=== PATIENT | female | born 1975 | race Caucasian/White ===

== ENCOUNTER 2017-09-21 17:05 | Emergency (ER) | payer MEDICAID, OTHER ==
[~2017-09-21] VITALS: Ht 160 cm; Wt 59.0 kg
[2017-09-22 02:06] VITALS: BP 135/82
== END 2017-09-22 02:09 | disposition home or self-care (01) ==
LOC: ER 17:13
DX: F32.9 Major depressive disorder, single episode, unspecified (principal); I10 Essential (primary) hypertension; Z76.0 Encounter for issue of repeat prescription; Z88.1 Allergy status to other antibiotic agents

== ENCOUNTER 2018-01-11 22:45 | Inpatient (IN) | payer MEDICAID ==
[~2018-01-11] VITALS: Ht 162.6 cm; Wt 64.1 kg
[2018-01-11] MEDS ORDERED: IOHEXOL 300 MG/ML 100ML BOTTLE IJ ONE (23:17)
[2018-01-11 23:28] LABS: Basophils # (auto) 0 uL; Basophils % (auto) 0.4 % (0.0-2.0); Eosinophils # (auto) 0 uL; Hemoglobin 7.5 g/dL (12.2-16.2); Monocytes # (auto) 0.5 uL; Neutrophils # (auto) 9.4 uL
[2018-01-11 23:29] LABS: Eosinophils % (auto) 0.4 % (0.0-7.0); Hematocrit 25.4 % (36.0-46.0); Lymphocytes # (auto) 1.3 uL; Mean Corpuscular Hemoglobin 19.9 pg (28.0-32.0); Mean Corpuscular Hgb Conc. 29.7 g/dL (32.0-36.0); Mean Corpuscular Volume 66.8 fL (80.0-100.0); Monocytes % (auto) 4.2 % (0.0-12.0); Platelet Count (auto) 659 10^3/uL (140-450); Red Cell Distribution Width 16.8 % (11.8-14.3); White Blood Cell 11.3 10^3/uL (4.4-10.8)
[2018-01-11 23:43] LABS: INR 1.01 (0.9-1.15); Partial Thromboplastin Time 26.5 sec (22.64-33.71)
[2018-01-11 23:45] LABS: Alanine Aminotransferase 12 U/L (13-56); Albumin 3.2 g/dL (3.4-5.0); Amylase 31 U/L (25-115); Anion Gap 7 (5-15); Aspartate Aminotransferase 10 U/L (15-37); BUN/Creatinine Ratio 12.5; Blood Urea Nitrogen 7 mg/dL (7-18); Calcium 8.8 mg/dL (8.5-10.1); Carbon Dioxide 24 mmol/L (21-32); Chloride 109 mmol/L (98-107); GFR African American 151 mL/min; GFR Non-African American 125 mL/min; Glucose 102 mg/dL (74-106); Lipase 77 U/L (73-393); Magnesium 2.1 mg/dL (1.6-2.6); Sodium 140 mmol/L (136-145)
[2018-01-11 23:50] LABS: Alkaline Phosphatase 103 U/L (45-117); Bilirubin, Total 0.2 mg/dL (0.2-1.0); Total Protein 7.6 g/dL (6.4-8.2)
[2018-01-11 23:51] LABS: Potassium 2.8 mmol/L (3.5-5.1)
[2018-01-12] VITALS (7 sets, daily range): BP systolic 93–115; BP diastolic 62–72
[2018-01-12] MEDS ORDERED: MORPHINE SULFATE 4 MG/ML SYR/VIAL IV ONE (00:30)
[2018-01-12] MEDS ORDERED: ONDANSETRON HCL 4 MG/2 ML VIAL IV ONE (00:30)
[2018-01-12] MEDS ORDERED: POTASSIUM CHL 20 Meq TABLET PO ONE (01:30)
[2018-01-12] MEDS ORDERED: traMADol HCL 50 MG TAB PO ONE (01:30)
[2018-01-12] MEDS: POTASSIUM CHL 20MEQ/100ML 100 ML IV SCH ×2 (01:55→03:30)
[2018-01-12] MEDS ORDERED: HEPARIN DRIP/D5W 100UNITS/ML 250 ML IV SCH (03:38)
[2018-01-12] MEDS ORDERED: HEPARIN SODIUM (PORCINE) 5000 UNITS/ML 1ML VIAL IV ONE (04:00)
[2018-01-12 04:28] LABS: Hemoglobin 7.2 g/dL (12.2-16.2); Lymphocytes # (auto) 1.5 uL; Monocytes # (auto) 0.7 uL; Neutrophils # (auto) 8.6 uL; Red Cell Distribution Width 16.8 % (11.8-14.3)
[2018-01-12 04:30] LABS: Basophils # (auto) 0.1 uL; Basophils % (auto) 0.5 % (0.0-2.0); Eosinophils # (auto) 0.1 uL; Eosinophils % (auto) 0.5 % (0.0-7.0); Lymphocytes % (auto) 13.6 % (10.0-50.0); Mean Corpuscular Hgb Conc. 29.8 g/dL (32.0-36.0); Mean Corpuscular Volume 67.3 fL (80.0-100.0); Monocytes % (auto) 6.7 % (0.0-12.0); Neutrophils % (auto) 78.7 % (37.0-80.0); Platelet Count (auto) 615 10^3/uL (140-450); Red Blood Cells 3.57 10^6/uL (4.0-5.20)
[2018-01-12 04:31] LABS: INR 1.03 (0.9-1.15); Partial Thromboplastin Time 24.9 sec (22.64-33.71); Prothrombin Time 11.2 sec (9.37-12.3)
[2018-01-12] MEDS ORDERED: fentaNYL CITRATE 100 MCG/2 ML VL IV ONE (05:15)
[2018-01-12] MEDS ORDERED: LEVOFLOXACIN 750MG 150 ML IV ONE (05:15)
[2018-01-12] MEDS ORDERED: LORazepam 2MG/ML-1ML VIAL IV ONE (07:00)
[2018-01-12] MEDS ORDERED: NITROGLYCERIN 0.4 MG SL TAB SL PRN (07:15)
[2018-01-12] MEDS ORDERED: MORPHINE SULFATE 4 MG/ML SYR/VIAL IV PRN (07:15)
[2018-01-12 07:38] LABS: Eosinophils # (auto) 0 uL; Monocytes # (auto) 0.6 uL; White Blood Cell 11.1 10^3/uL (4.4-10.8)
[2018-01-12 07:39] LABS: BUN/Creatinine Ratio 8.9; Basophils # (auto) 0 uL; Basophils % (auto) 0.4 % (0.0-2.0); Calcium 8.3 mg/dL (8.5-10.1); Eosinophils % (auto) 0.4 % (0.0-7.0); Hematocrit 22.4 % (36.0-46.0); Lymphocytes # (auto) 1.7 uL; Lymphocytes % (auto) 15.7 % (10.0-50.0); Mean Corpuscular Hemoglobin 20.3 pg (28.0-32.0); Mean Corpuscular Hgb Conc. 30.2 g/dL (32.0-36.0); Mean Corpuscular Volume 67.1 fL (80.0-100.0); Monocytes % (auto) 5.4 % (0.0-12.0); Neutrophils # (auto) 8.7 uL; Neutrophils % (auto) 78.1 % (37.0-80.0); Nucleated Red Blood Cells % 0.1 %; Platelet Count (auto) 597 10^3/uL (140-450); Potassium 4.3 mmol/L (3.5-5.1); Red Blood Cells 3.33 10^6/uL (4.0-5.20); Red Cell Distribution Width 16.5 % (11.8-14.3)
[2018-01-12 08:00] LABS: Hemoglobin 6.8 g/dL (12.2-16.2)
[2018-01-12 09:15] LABS: Hematocrit 24.4 % (36.0-46.0); Hemoglobin 7.2 g/dL (12.2-16.2)
[2018-01-12] MEDS: MORPHINE SULFATE 4 MG/ML SYR/VIAL IV PRN ×3 (09:26→20:00)
[2018-01-12] MEDS: ONDANSETRON HCL 4 MG/2 ML VIAL IV PRN ×3 (09:26→20:00)
[2018-01-12 11:29] LABS: % Iron Saturation 2.5 % (15-50)
[2018-01-12] MEDS ORDERED: FUROSEMIDE 20 MG/2 ML VIAL IV ONE (11:45)
[2018-01-12] MEDS ORDERED: POTASSIUM CHL 10% (20 MEQ/15ML) 15ml ORAL SOLN PO ONE (11:45)
[2018-01-12 15:02] LABS: INR 1.07 (0.9-1.15); Prothrombin Time 11.7 sec (9.37-12.3)
[2018-01-12] MEDS: HEPARIN DRIP/D5W 100UNITS/ML 250 ML IV SCH (16:15)
[2018-01-12] MEDS: FERROUS SULFATE 325 MG TAB PO SCH (19:00)
[2018-01-12] MEDS: HYDROcodone-ACET 5/325MG TAB PO PRN (21:48)
[2018-01-12 22:43] LABS: INR 1.05 (0.9-1.15); Partial Thromboplastin Time 52.5 sec (22.64-33.71); Prothrombin Time 11.4 sec (9.37-12.3)
[2018-01-12] MEDS: ACETAMINOPHEN 500 MG TAB PO PRN (23:05)
[2018-01-13] MEDS: HEPARIN DRIP/D5W 100UNITS/ML 250 ML IV SCH ×3 (03:07→18:47)
[2018-01-13 05:00] VITALS: BP 104/63
[2018-01-13] MEDS: MORPHINE SULFATE 4 MG/ML SYR/VIAL IV PRN (05:29)
[2018-01-13] MEDS: ONDANSETRON HCL 4 MG/2 ML VIAL IV PRN (05:29)
[2018-01-13 06:38] LABS: Eosinophils # (auto) 0.1 uL; Hemoglobin 9.8 g/dL (12.2-16.2); Lymphocytes % (auto) 22.5 % (10.0-50.0); Monocytes # (auto) 0.7 uL; Platelet Count (auto) 548 10^3/uL (140-450)
[2018-01-13 06:45] LABS: Basophils # (auto) 0 uL; Basophils % (auto) 0.4 % (0.0-2.0); Eosinophils % (auto) 1.1 % (0.0-7.0); Hematocrit 30.8 % (36.0-46.0); Mean Corpuscular Hemoglobin 23.2 pg (28.0-32.0); Mean Corpuscular Hgb Conc. 31.7 g/dL (32.0-36.0); Neutrophils # (auto) 5.9 uL; Nucleated Red Blood Cells % 0.2 %; Red Blood Cells 4.22 10^6/uL (4.0-5.20); White Blood Cell 8.7 10^3/uL (4.4-10.8)
[2018-01-13 06:56] LABS: INR 1.04 (0.9-1.15); Partial Thromboplastin Time 57.2 sec (22.64-33.71); Prothrombin Time 11.3 sec (9.37-12.3)
[2018-01-13 07:11] LABS: Cholesterol 114 mg/dL (< 200); HDL Cholesterol 30 mg/dL (40-59); LDL Cholesterol 78 mg/dL (< 100); Triglycerides 210 mg/dL (< 150)
[2018-01-13 07:17] LABS: BUN/Creatinine Ratio 11.9; Calcium 8.5 mg/dL (8.5-10.1); Potassium 3.5 mmol/L (3.5-5.1)
[2018-01-13 07:21] LABS: Red Cell Distribution Width 22.9 % (11.8-14.3)
[2018-01-13 08:00] VITALS: BP 107/54
[2018-01-13] MEDS: FERROUS SULFATE 325 MG TAB PO SCH ×2 (08:25→17:41)
[2018-01-13] MEDS: HYDROcodone-ACET 5/325MG TAB PO PRN ×3 (08:38→21:27)
[2018-01-13 09:00] VITALS: BP 107/54
[2018-01-13] MEDS: ACETAMINOPHEN 500 MG TAB PO PRN (11:51)
[2018-01-13 13:00] VITALS: BP 89/66
[2018-01-13 13:08] LABS: INR 1.05 (0.9-1.15); Prothrombin Time 11.4 sec (9.37-12.3)
[2018-01-13 13:37] LABS: Urine Bacteria FEW /hpf (None Seen); Urine Blood Negative /uL (Negative); Urine Mucus MODERATE (None Seen); Urine Specific Gravity 1.033 (1.001-1.035); Urine WBC 15 /hpf (0 - 5)
[2018-01-13 14:03] LABS: Alcohol, Urine < 3.0 mg/dL (0-5); Amphetamine Screen, Urine NEGATIVE (NEGATIVE); Barbiturate Scree,Urine NEGATIVE (NEGATIVE); Benzodiazephine Screen, Urine NEGATIVE (NEGATIVE); Cannabinoid Screen, Urine NEGATIVE (NEGATIVE); Cocaine Screen, Urine NEGATIVE (NEGATIVE); Opiate Scree,Urine POSITIVE (NEGATIVE); Phencyclidine Screen, Urine NEGATIVE (NEGATIVE)
[2018-01-13] MEDS ORDERED: ASPI81TA27 (14:39)
[2018-01-13] MEDS ORDERED: PAR20T (14:39)
[2018-01-13] MEDS ORDERED: ATOR20TA50 (14:39)
[2018-01-13] MEDS ORDERED: SERT-274 (14:39)
[2018-01-13] MEDS: MORPHINE SULFATE 8mg/ml INJ SDV IV PRN ×2 (15:15→20:20)
[2018-01-13] MEDS ORDERED: WARFARIN SODIUM 2.5 MG TAB PO ONE (17:00)
[2018-01-13 17:46] VITALS: BP 100/66
[2018-01-13 19:55] LABS: INR 1.05 (0.9-1.15); Partial Thromboplastin Time 63.6 sec (22.64-33.71); Prothrombin Time 11.4 sec (9.37-12.3)
[2018-01-13] MEDS: ATORVASTATIN 20 MG TAB PO SCH (21:20)
[2018-01-13 22:00] VITALS: BP 110/68
[2018-01-14] MEDS: MORPHINE SULFATE 8mg/ml INJ SDV IV PRN ×5 (00:45→22:51)
[2018-01-14 01:24] LABS: INR 1.09 (0.9-1.15); Partial Thromboplastin Time 69.3 sec (22.64-33.71); Prothrombin Time 11.9 sec (9.37-12.3)
[2018-01-14] MEDS: HYDROcodone-ACET 5/325MG TAB PO PRN ×4 (03:04→18:11)
[2018-01-14 05:55] VITALS: BP 104/68
[2018-01-14 07:53] LABS: Basophils # (auto) 0.1 uL; Hematocrit 30.4 % (36.0-46.0); Lymphocytes # (auto) 1.9 uL; White Blood Cell 8.3 10^3/uL (4.4-10.8)
[2018-01-14 07:57] LABS: Basophils % (auto) 0.8 % (0.0-2.0); Eosinophils # (auto) 0.2 uL; Eosinophils % (auto) 1.8 % (0.0-7.0); Hemoglobin 9.6 g/dL (12.2-16.2); Lymphocytes % (auto) 22.3 % (10.0-50.0); Mean Corpuscular Hemoglobin 22.9 pg (28.0-32.0); Mean Corpuscular Hgb Conc. 31.6 g/dL (32.0-36.0); Mean Corpuscular Volume 72.6 fL (80.0-100.0); Monocytes # (auto) 0.5 uL; Monocytes % (auto) 6.5 % (0.0-12.0); Neutrophils # (auto) 5.7 uL; Neutrophils % (auto) 68.6 % (37.0-80.0); Nucleated Red Blood Cells % 0.1 %; Platelet Count (auto) 602 10^3/uL (140-450); Red Blood Cells 4.18 10^6/uL (4.0-5.20)
[2018-01-14 08:05] LABS: Albumin 2.8 g/dL (3.4-5.0); BUN/Creatinine Ratio 9.1; Bilirubin, Total 0.3 mg/dL (0.2-1.0); Calcium 8.8 mg/dL (8.5-10.1); Potassium 3.5 mmol/L (3.5-5.1); Red Cell Distribution Width 23.5 % (11.8-14.3); Total Protein 7.3 g/dL (6.4-8.2)
[2018-01-14 08:06] LABS: INR 1.31 (0.9-1.15); Prothrombin Time 14.3 sec (9.37-12.3)
[2018-01-14 09:00] VITALS: BP 96/61
[2018-01-14] MEDS: FERROUS SULFATE 325 MG TAB PO SCH ×2 (09:28→18:00)
[2018-01-14 13:00] VITALS: BP 95/59
[2018-01-14 17:00] VITALS: BP 96/64
[2018-01-14] MEDS ORDERED: WARFARIN SODIUM 2.5 MG TAB PO ONE (17:00)
[2018-01-14 20:00] VITALS: BP 105/70
[2018-01-14 22:00] VITALS: BP 105/70
[2018-01-14] MEDS: ATORVASTATIN 20 MG TAB PO SCH (22:07)
[2018-01-15 01:15] LABS: INR 3.17 (0.9-1.15); Partial Thromboplastin Time 63.2 sec (22.64-33.71)
[2018-01-15] MEDS: HEPARIN DRIP/D5W 100UNITS/ML 250 ML IV SCH ×2 (01:57→04:05)
[2018-01-15 05:00] VITALS: BP 96/64
[2018-01-15] MEDS: MORPHINE SULFATE 8mg/ml INJ SDV IV PRN ×2 (06:31→19:47)
[2018-01-15 07:15] LABS: Eosinophils # (auto) 0.1 uL; Hemoglobin 9.6 g/dL (12.2-16.2); Mean Corpuscular Hemoglobin 22.5 pg (28.0-32.0); Monocytes # (auto) 0.6 uL; Red Blood Cells 4.28 10^6/uL (4.0-5.20)
[2018-01-15 07:19] LABS: Basophils # (auto) 0 uL; Basophils % (auto) 0.5 % (0.0-2.0); Eosinophils % (auto) 1.7 % (0.0-7.0); Lymphocytes # (auto) 1.6 uL; Lymphocytes % (auto) 19.6 % (10.0-50.0); Mean Corpuscular Hgb Conc. 31.1 g/dL (32.0-36.0); Mean Corpuscular Volume 72.4 fL (80.0-100.0); Monocytes % (auto) 7.7 % (0.0-12.0); Neutrophils # (auto) 5.8 uL; Neutrophils % (auto) 70.5 % (37.0-80.0); Platelet Count (auto) 709 10^3/uL (140-450); White Blood Cell 8.2 10^3/uL (4.4-10.8)
[2018-01-15 07:24] LABS: Partial Thromboplastin Time 64.3 sec (22.64-33.71); Prothrombin Time 46.4 sec (9.37-12.3)
[2018-01-15 07:28] LABS: Red Cell Distribution Width 23.5 % (11.8-14.3)
[2018-01-15 07:40] LABS: INR 4.2 (0.9-1.15)
[2018-01-15] MEDS: FERROUS SULFATE 325 MG TAB PO SCH ×2 (08:12→18:11)
[2018-01-15 08:13] VITALS: BP 103/66
[2018-01-15] MEDS: HYDROcodone-ACET 5/325MG TAB PO PRN ×2 (09:36→22:28)
[2018-01-15] MEDS ORDERED: ATOR20TA50 PO (10:04)
[2018-01-15 13:27] VITALS: BP 96/64
[2018-01-15 16:56] VITALS: BP 99/74
[2018-01-15] MEDS: SODIUM FERR GLUC 62.5MG/5ML 125 MG in SODIUM CHL 0.9% 100 ML IV SCH (19:53)
[2018-01-15 20:00] VITALS: BP 94/63
[2018-01-15 20:08] LABS: Folate (Folic Acid) 9.72 ng/mL (5.38-24)
[2018-01-15 22:00] VITALS: BP 94/63
[2018-01-15] MEDS: ATORVASTATIN 20 MG TAB PO SCH (22:28)
[2018-01-16] MEDS: MORPHINE SULFATE 8mg/ml INJ SDV IV PRN (04:42)
[2018-01-16 05:00] VITALS: BP 92/64
[2018-01-16 06:47] LABS: Basophils # (auto) 0.1 uL; Basophils % (auto) 0.8 % (0.0-2.0); Eosinophils # (auto) 0.2 uL; Hematocrit 30.5 % (36.0-46.0); Monocytes # (auto) 0.7 uL; Neutrophils # (auto) 4.9 uL
[2018-01-16 06:49] LABS: Eosinophils % (auto) 2.3 % (0.0-7.0); Hemoglobin 9.8 g/dL (12.2-16.2); Lymphocytes # (auto) 1.6 uL; Lymphocytes % (auto) 21.9 % (10.0-50.0); Mean Corpuscular Hemoglobin 23.3 pg (28.0-32.0); Mean Corpuscular Hgb Conc. 32.1 g/dL (32.0-36.0); Mean Corpuscular Volume 72.4 fL (80.0-100.0); Monocytes % (auto) 9.5 % (0.0-12.0); Neutrophils % (auto) 65.5 % (37.0-80.0); Platelet Count (auto) 685 10^3/uL (140-450); Red Blood Cells 4.21 10^6/uL (4.0-5.20); White Blood Cell 7.4 10^3/uL (4.4-10.8)
[2018-01-16 06:57] LABS: Albumin 2.5 g/dL (3.4-5.0); BUN/Creatinine Ratio 13.7; Calcium 8.5 mg/dL (8.5-10.1); Potassium 3.7 mmol/L (3.5-5.1); Red Cell Distribution Width 23.8 % (11.8-14.3)
[2018-01-16 06:59] LABS: Partial Thromboplastin Time 55.3 sec (22.64-33.71); Prothrombin Time 81.8 sec (9.37-12.3)
[2018-01-16 07:03] LABS: Bilirubin, Total 0.4 mg/dL (0.2-1.0); Total Protein 6.9 g/dL (6.4-8.2)
[2018-01-16 07:20] LABS: INR 7.35 (0.9-1.15)
[2018-01-16] MEDS: FERROUS SULFATE 325 MG TAB PO SCH ×2 (08:00→17:39)
[2018-01-16] MEDS ORDERED: IOHEXOL 350 MG/ML 100ML IJ ONE (08:16)
[2018-01-16 08:54] VITALS: BP 93/50
[2018-01-16] MEDS: SODIUM FERR GLUC 62.5MG/5ML 125 MG in SODIUM CHL 0.9% 100 ML IV SCH (12:12)
[2018-01-16 13:15] VITALS: BP 95/61
[2018-01-16 17:20] VITALS: BP 95/62
[2018-01-16 20:17] VITALS: BP 96/57
[2018-01-16] MEDS: HYDROcodone-ACET 5/325MG TAB PO PRN (20:38)
[2018-01-16] MEDS: ATORVASTATIN 20 MG TAB PO SCH (22:18)
[2018-01-16 22:31] VITALS: BP 96/57
[2018-01-17 05:30] VITALS: BP 97/57
[2018-01-17 05:44] LABS: Basophils # (auto) 0.1 uL; Eosinophils # (auto) 0.2 uL; Hemoglobin 9.6 g/dL (12.2-16.2); Lymphocytes # (auto) 1.7 uL; Neutrophils % (auto) 66.7 % (37.0-80.0)
[2018-01-17 05:47] LABS: Eosinophils % (auto) 2.6 % (0.0-7.0); Hematocrit 30.6 % (36.0-46.0); Lymphocytes % (auto) 21.7 % (10.0-50.0); Mean Corpuscular Hemoglobin 22.6 pg (28.0-32.0); Mean Corpuscular Hgb Conc. 31.3 g/dL (32.0-36.0); Mean Corpuscular Volume 72.2 fL (80.0-100.0); Monocytes # (auto) 0.6 uL; Neutrophils # (auto) 5.2 uL; Platelet Count (auto) 701 10^3/uL (140-450); Red Blood Cells 4.23 10^6/uL (4.0-5.20); White Blood Cell 7.7 10^3/uL (4.4-10.8)
[2018-01-17 05:48] LABS: Red Cell Distribution Width 23.9 % (11.8-14.3)
[2018-01-17 05:57] LABS: Partial Thromboplastin Time 59.4 sec (22.64-33.71); Prothrombin Time 80.3 sec (9.37-12.3)
[2018-01-17 06:01] LABS: INR 7.22 (0.9-1.15)
[2018-01-17 06:04] LABS: Calcium 8.7 mg/dL (8.5-10.1)
[2018-01-17 06:07] LABS: BUN/Creatinine Ratio 15.7
[2018-01-17] MEDS: HYDROcodone-ACET 5/325MG TAB PO PRN (06:47)
[2018-01-17] MEDS: FERROUS SULFATE 325 MG TAB PO SCH ×2 (08:43→17:49)
[2018-01-17 08:57] VITALS: BP 84/51
[2018-01-17 13:00] VITALS: BP 97/59
[2018-01-17] MEDS: SODIUM FERR GLUC 62.5MG/5ML 125 MG in SODIUM CHL 0.9% 100 ML IV SCH (13:34)
[2018-01-17 17:00] VITALS: BP 97/57
[2018-01-17 20:20] VITALS: BP 106/71
[2018-01-17] MEDS: ATORVASTATIN 20 MG TAB PO SCH (21:22)
[2018-01-17 22:08] VITALS: BP 106/71
[2018-01-18 04:35] VITALS: BP 108/68
[2018-01-18] MEDS: FERROUS SULFATE 325 MG TAB PO SCH (07:56)
[2018-01-18 09:00] VITALS: BP 102/66
[2018-01-18 10:29] LABS: Partial Thromboplastin Time 57.3 sec (22.64-33.71); Prothrombin Time 58.9 sec (9.37-12.3)
[2018-01-18 10:37] LABS: INR 5.31 (0.9-1.15)
[2018-01-18] MEDS: SODIUM FERR GLUC 62.5MG/5ML 125 MG in SODIUM CHL 0.9% 100 ML IV SCH (12:14)
[2018-01-18 13:00] VITALS: BP 96/62
[2018-01-18 14:18] VITALS: BP 96/62
[2018-01-18 14:39] VITALS: BP 96/62
== END 2018-01-18 15:30 | disposition home health service (06) | DRG 134 ==
LOC: ER 22:47 → TELE 22:48 → TELE-CENTR 01-12 17:27 → OVERFLOW 01-13 10:15 → TELE-CENTR 01-13 10:16 → CENTRAL 01-13 13:40
PROVIDERS: ADMIT Nurse Practitioner Family; ATTEND Internal Medicine
PROC: 30233N1 Transfusion of Nonautologous Red Blood Cells into Peripheral Vein, Percutaneous Approach (ICD-10-PCS; principal; 2018-01-12)
DX: I26.99 Other pulmonary embolism without acute cor pulmonale (principal); J18.9 Pneumonia, unspecified organism; D68.59 Other primary thrombophilia; I69.351 Hemiplegia and hemiparesis following cerebral infarction affecting right dominant side; E78.5 Hyperlipidemia, unspecified; E87.6 Hypokalemia; D50.0 Iron deficiency anemia secondary to blood loss (chronic); I10 Essential (primary) hypertension; N92.0 Excessive and frequent menstruation with regular cycle; D25.9 Leiomyoma of uterus, unspecified; F32.9 Major depressive disorder, single episode, unspecified; N94.6 Dysmenorrhea, unspecified; Z86.711 Personal history of pulmonary embolism; Z88.2 Allergy status to sulfonamides; Z88.8 Allergy status to other drugs, medicaments and biological substances
CPT/HCPCS: 36415; 36430; 70450; 71045; 71046; 71275; 74177; 76604; 76856; 80048; 80053; 80061; 80307; 81001; 81241; 82150; 82607; 82728; 82746; 83090; 83540; 83550; 83690; 83735; 84484; 84702; 85014; 85018; 85025; 85301; 85610; 85613; 85670; 85705; 85730; 85732; 86850; 86900; 86901; 86920; 87086; 93005; 93970; 96361; 96365; 96375; 97163; J1956; J2405; J3480

== ENCOUNTER 2018-02-04 14:15 | Emergency (ER) | payer MEDICAID ==
[~2018-02-04] VITALS: Ht 162.6 cm; Wt 61.2 kg
[~2018-02-04 14:15] MED LIST: ASPI81TA27; ATOR20TA50; ATOR20TA50 PO; PAR20T; SERT-274
[2018-02-04 15:06] LABS: Basophils # (auto) 0.1 uL; Neutrophils # (auto) 3.7 uL
[2018-02-04 15:08] LABS: Basophils % (auto) 1.3 % (0.0-2.0); Eosinophils # (auto) 0.2 uL; Eosinophils % (auto) 2.7 % (0.0-7.0); Hematocrit 37.8 % (36.0-46.0); Hemoglobin 12.1 g/dL (12.2-16.2); Lymphocytes # (auto) 1.6 uL; Lymphocytes % (auto) 26.9 % (10.0-50.0); Mean Corpuscular Hemoglobin 24.8 pg (28.0-32.0); Mean Corpuscular Hgb Conc. 32.1 g/dL (32.0-36.0); Mean Corpuscular Volume 77.2 fL (80.0-100.0); Monocytes # (auto) 0.4 uL; Monocytes % (auto) 6.1 % (0.0-12.0); Nucleated Red Blood Cells % 0.3 %; Platelet Count (auto) 369 10^3/uL (140-450); Red Blood Cells 4.89 10^6/uL (4.0-5.20); White Blood Cell 5.8 10^3/uL (4.4-10.8)
[2018-02-04 15:15] LABS: Red Cell Distribution Width 27.5 % (11.8-14.3)
[2018-02-04 15:20] LABS: INR 1.55 (0.9-1.15); Partial Thromboplastin Time 32.2 sec (22.64-33.71)
[2018-02-04 15:27] LABS: Albumin 3.9 g/dL (3.4-5.0); Calcium 9.2 mg/dL (8.5-10.1)
[2018-02-04 15:28] LABS: BUN/Creatinine Ratio 15.3
[2018-02-04 15:30] VITALS: BP 112/68
[2018-02-04 15:34] LABS: Bilirubin, Total 0.6 mg/dL (0.2-1.0); Total Protein 8.3 g/dL (6.4-8.2)
[2018-02-04] MEDS ORDERED: WARFARIN SODIUM 5 MG TAB PO ONE (16:00)
== END 2018-02-04 17:35 | disposition home or self-care (01) ==
LOC: ER 14:20
DX: R07.89 Other chest pain (principal); R78.5 Finding of other psychotropic drug in blood; I26.99 Other pulmonary embolism without acute cor pulmonale; Z90.710 Acquired absence of both cervix and uterus; Z90.89 Acquired absence of other organs; Z86.73 Personal history of transient ischemic attack (TIA), and cerebral infarction without residual deficits
CPT/HCPCS: 36415; 71046; 80053; 84484; 85025; 85379; 85610; 85730; 93005

== ENCOUNTER 2018-09-19 18:28 | Emergency (ER) | payer SELFPAY ==
[~2018-09-19] VITALS: Ht 162.6 cm; Wt 47.6 kg
[2018-09-19] MEDS ORDERED: ONDANSETRON HCL 4 MG/2 ML VIAL IV ONE (19:00)
[2018-09-19] MEDS ORDERED: SODIUM CHLORIDE 0.9% 1,000 ML IV ONE (19:00)
[2018-09-19 19:30] LABS: Eosinophils # (auto) 0 uL; Hemoglobin 8.4 g/dL (12.2-16.2); Mean Corpuscular Volume 63.7 fL (80.0-100.0); Monocytes # (auto) 0.3 uL
[2018-09-19 19:32] LABS: Basophils # (auto) 0 uL; Basophils % (auto) 0.4 % (0.0-2.0); Eosinophils % (auto) 0.1 % (0.0-7.0); Hematocrit 30.3 % (36.0-46.0); Lymphocytes # (auto) 0.5 uL; Mean Corpuscular Hemoglobin 17.6 pg (28.0-32.0); Mean Corpuscular Hgb Conc. 27.6 g/dL (32.0-36.0); Monocytes % (auto) 3.2 % (0.0-12.0); Neutrophils # (auto) 7.6 uL; Neutrophils % (auto) 90.3 % (37.0-80.0); Platelet Count (auto) 517 10^3/uL (140-450); Red Blood Cells 4.76 10^6/uL (4.0-5.20); Red Cell Distribution Width 19.6 % (11.8-14.3); White Blood Cell 8.5 10^3/uL (4.4-10.8)
[2018-09-19 19:48] LABS: Alanine Aminotransferase 24 U/L (13-56); Albumin 4.5 g/dL (3.4-5.0); Anion Gap 8 (5-15); Aspartate Aminotransferase 15 U/L (15-37); Blood Urea Nitrogen 8 mg/dL (7-18); Calcium 8.8 mg/dL (8.5-10.1); Carbon Dioxide 20 mmol/L (21-32); Chloride 108 mmol/L (98-107); Glucose 123 mg/dL (74-106); Potassium 3.7 mmol/L (3.5-5.1); Sodium 136 mmol/L (136-145)
[2018-09-19 19:50] LABS: Amylase 44 U/L (25-115); Lipase 114 U/L (73-393)
[2018-09-19 19:52] LABS: Alkaline Phosphatase 93 U/L (45-117); BUN/Creatinine Ratio 9.9; Bilirubin, Total 0.4 mg/dL (0.2-1.0); GFR African American 99 mL/min; GFR Non-African American 82 mL/min; Total Protein 8.6 g/dL (6.4-8.2)
[2018-09-19] MEDS ORDERED: MORPHINE SULFATE 4 MG/ML SYR/VIAL IV ONE (20:15)
[2018-09-20] MEDS ORDERED: ONDANSETRON HCL 4 MG/2 ML VIAL IV ONE (00:30)
[2018-09-20 01:08] VITALS: BP 113/71
== END 2018-09-20 01:20 | disposition short-term general hospital (02) ==
LOC: ER 18:35
DX: G08 Intracranial and intraspinal phlebitis and thrombophlebitis (principal); I63.89 Other cerebral infarction; E78.5 Hyperlipidemia, unspecified; Z90.710 Acquired absence of both cervix and uterus; Z90.89 Acquired absence of other organs
CPT/HCPCS: 36415; 70450; 80053; 81025; 82150; 83690; 84484; 85025; 93005; 96361; 96374; 96375; 96376; 99285; J2270; J2405; J7030

== ENCOUNTER 2019-03-23 09:33 | Inpatient (IN) | payer MEDICAID, OTHER ==
[2019-03-23] VITALS (11 sets, daily range): BP systolic 93–119; BP diastolic 39–81
[~2019-03-23] VITALS: Ht 162.6 cm; Wt 61.3 kg
[2019-03-23 10:15] LABS: Hematocrit 21.8 % (36.0-46.0); Mean Corpuscular Hemoglobin 17.6 pg (28.0-32.0); Mean Corpuscular Hgb Conc. 27.3 g/dL (32.0-36.0); Mean Corpuscular Volume 64.6 fL (80.0-100.0); Platelet Count (auto) 490 10^3/uL (140-450); Red Blood Cells 3.37 10^6/uL (4.0-5.20)
[2019-03-23 10:16] LABS: Red Cell Distribution Width 20.4 % (11.8-14.3)
[2019-03-23 10:18] LABS: Hemoglobin 5.9 g/dL (12.2-16.2)
[2019-03-23 10:20] LABS: Band Neutrophils % (manual) 0; Basophils % (manual) 0 (0.0-2.0); Blast Cells 0; Metamyelocytes % 0; Myelocytes % 0; Promyelocytes % 0; Reactive Lymphocytes 0
[2019-03-23 10:21] LABS: Albumin 3.8 g/dL (3.4-5.0); Calcium 8.4 mg/dL (8.5-10.1); Potassium 3.8 mmol/L (3.5-5.1)
[2019-03-23 10:23] LABS: INR 1.31 (0.9-1.15); Partial Thromboplastin Time 24.4 sec (23.64-32.05)
[2019-03-23 10:24] LABS: BUN/Creatinine Ratio 14.9; Bilirubin, Total 0.4 mg/dL (0.2-1.0); Total Protein 7.1 g/dL (6.4-8.2)
[2019-03-23 11:39] LABS: Eosinophils % (manual) 2 (0-7); Lymphocytes % (manual) 35 (10.0-50.0); Monocytes % (manual) 4 (0-12)
[2019-03-23] MEDS ORDERED: MORPHINE SULF INJ 2 MG/ML SYRINGE 1ML IV PRN ×2 (13:45)
[2019-03-23] MEDS ORDERED: HYDROcodone-ACET 5/325MG TAB PO PRN (13:45)
[2019-03-23] MEDS ORDERED: ONDANSETRON HCL 4 MG/2 ML VIAL IV PRN (13:45)
[2019-03-23] MEDS ORDERED: NITROGLYCERIN 0.4 MG SL TAB SL PRN (13:45)
--- NOTE | 2019-03-23 15:30 | NUR ---
RECEIVED PATIENT TO THE FLOOR ALERT AND ORIENTED X 4 NO SIGNS AND SYMPTOMS OF DISTRESS NOTED, OR PAIN. BED LOCKED IN LOWEST POSITION WITH TWO SIDE RAILS UP AND CALL LIGHT IN REACH. INSTRUCTED THE PATIENT ON THE PLAN OF CARE AND TO CALL IF ANYTHING IS NEEDED. WILL CONTINUE TO MONITOR Q HOURLY.
--- NOTE | 2019-03-23 17:09 | NUR ---
BLOOD TRANSFUSION STARTED.
--- NOTE | 2019-03-23 18:37 | NUR ---
PATIENT STILL RECEIVING BLOOD, NO SIGNS AND SYMPTOMS OF DISTRESS NOTED. PATIENT TOLERATING WELL. WILL ENDORSE THE REMAINDER TO NIGHT NURSE.
--- NOTE | 2019-03-23 19:40 | NUR ---
Opening Shift Note Assumed care of patient, awake and alert, oriented x 4, clear speech, follows direction. On room air with even and unlabored respirations with no S/S of distress or SOB. IV intact and patent infusing blood at this time. Patient uses BSC and turns independently. Bed low locked position with side rails up x 2 and call light within reach. Instructed on POC and to call for assist PRN, will continue to monitor for changes Q1hr and PRN.
--- NOTE | 2019-03-23 20:41 | NUR ---
Blood Transfusion Ended no reaction noted. no s/s of distress.
[2019-03-23] MEDS: ATORVASTATIN 20 MG TAB PO SCH (20:57)
[2019-03-23] MEDS: DOCUSATE SOD 100 MG CAP PO SCH (20:58)
[2019-03-23] MEDS: ACETAMINOPHEN 500 MG TAB PO PRN (20:58)
[2019-03-24 04:48] VITALS: BP 116/68
--- NOTE | 2019-03-24 07:00 | NUR ---
Closing Note patient resting in bed with no s/s of distress or pain at this time. IV intact and patent. Endorsed care to day shift RN.
--- NOTE | 2019-03-24 07:15 | NUR ---
Opening Shift Note Assumed care of patient, awake and alert. No S/S of distress/SOB or pain. Instructed on POC and to call for assist PRN, will continue to monitor for changes Q1hr and PRN. Bed locked in lowest position with two side rails up and call light in reach.
[2019-03-24 07:18] LABS: Basophils # (auto) 0 uL; Eosinophils # (auto) 0.1 uL; Hemoglobin 8.6 g/dL (12.2-16.2); Monocytes # (auto) 0.3 uL
[2019-03-24 07:21] LABS: Basophils % (auto) 1.1 % (0.0-2.0); Eosinophils % (auto) 2.2 % (0.0-7.0); Lymphocytes # (auto) 1.6 uL; Lymphocytes % (auto) 38.5 % (10.0-50.0); Mean Corpuscular Hemoglobin 20.8 pg (28.0-32.0); Mean Corpuscular Hgb Conc. 29.7 g/dL (32.0-36.0); Mean Corpuscular Volume 70.1 fL (80.0-100.0); Neutrophils # (auto) 2.1 uL; Neutrophils % (auto) 51.2 % (37.0-80.0); Nucleated Red Blood Cells % 0.2 %; Platelet Count (auto) 399 10^3/uL (140-450); Red Blood Cells 4.14 10^6/uL (4.0-5.20); Red Cell Distribution Width 25.6 % (11.8-14.3); White Blood Cell 4.1 10^3/uL (4.4-10.8)
[2019-03-24 07:28] LABS: BUN/Creatinine Ratio 10.6; Calcium 8.5 mg/dL (8.5-10.1); Potassium 4.1 mmol/L (3.5-5.1)
[2019-03-24 09:00] VITALS: BP 100/57
--- NOTE | 2019-03-24 09:10 | NUR ---
DR TONY STAPLETON.
[2019-03-24] MEDS: DOCUSATE SOD 100 MG CAP PO SCH ×2 (09:37→20:38)
[2019-03-24] MEDS: ASPirin-EC 81 mg tab PO SCH (09:38)
[2019-03-24] MEDS: FAMOTIDINE 20 MG TAB PO SCH (09:38)
[2019-03-24] MEDS: SERTRALINE HCL 50 MG TAB PO SCH (09:38)
[2019-03-24] MEDS: ACETAMINOPHEN 500 MG TAB PO PRN (12:25)
[2019-03-24] MEDS: SODIUM FERR GLUC 62.5MG/5ML 125 MG in SODIUM CHL 0.9% 100 ML IV SCH (12:25)
[2019-03-24 13:23] VITALS: BP 104/59
[2019-03-24 16:58] VITALS: BP 116/70
--- NOTE | 2019-03-24 17:04 | NUR ---
ENDORSED CARE TO NELI SKELTON
--- NOTE | 2019-03-24 17:35 | NUR ---
MD HESS AT BEDSIDE
--- NOTE | 2019-03-24 19:04 | NUR ---
CLOSING NOTE CARE OF PATIENT DELEGATED TO COACH BUILDER
[2019-03-24] MEDS: ATORVASTATIN 20 MG TAB PO SCH (20:38)
[2019-03-24 21:28] VITALS: BP 119/73
[2019-03-25 05:12] VITALS: BP 99/62
[2019-03-25 06:54] LABS: % Iron Saturation 18.1 % (15-50)
[2019-03-25 06:55] LABS: Hematocrit 29.3 % (36.0-46.0); Hemoglobin 8.8 g/dL (12.2-16.2)
--- NOTE | 2019-03-25 07:11 | NUR ---
Closing Note patient resting in bed with no s/s of distress or pain at this time. IV intact and patent. Endorsed care to day shift RN.
[2019-03-25 07:57] LABS: Folate (Folic Acid) 9.55 ng/mL (5.38-24)
--- NOTE | 2019-03-25 08:56 | NUR ---
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
[2019-03-25 09:00] VITALS: BP 95/60
--- NOTE | 2019-03-25 09:30 | NUR ---
Opening Shift Note Assumed care of patient, awake and alert. No S/S of distress/SOB or pain. Instructed on POC and to call for assist PRN, will continue to monitor for changes Q1hr and PRN.
[2019-03-25] MEDS ORDERED: fentaNYL CITRATE 100 MCG/2 ML VL ONE (10:19)
[2019-03-25] MEDS ORDERED: MIDAZOLAM HCL 1MG/1ML-2 ML VIAL ONE (10:20)
[2019-03-25] MEDS ORDERED: LIDOCAINE 2%HCL (LOCAL ANESTH.) INJ 20ML MDV ONE (10:30)
[2019-03-25] MEDS: FAMOTIDINE 20 MG TAB PO SCH (12:04)
[2019-03-25] MEDS: ASPirin-EC 81 mg tab PO SCH (12:05)
[2019-03-25] MEDS: SERTRALINE HCL 50 MG TAB PO SCH (12:05)
[2019-03-25] MEDS: DOCUSATE SOD 100 MG CAP PO SCH (12:05)
--- NOTE | 2019-03-25 12:10 | NUR ---
Patient came to the floor, no respiratory distress noted.
[2019-03-25] MEDS: SODIUM FERR GLUC 62.5MG/5ML 125 MG in SODIUM CHL 0.9% 100 ML IV SCH (12:23)
--- NOTE | 2019-03-25 14:15 | NUR ---
CALLED PT AND INFORMED HER OF YESTERDAY AND TODAY BEING DENIED STAY HERE AND PT WOULD HAVE TO USE OUT OF NETWORK BENEFITS AND THOSE BENEFITS ONLY PAY FOR 50% OF HOSPITAL STAY, PT IS RESPONSIBLE FOR THE REST. I HAVE ALSO CALLED [facility] BACK BUT HAD TO LEAVE MESSAGE TO SEE IF THEY WILL APPROVE TRANSFER FOR IN NETWORK FACILITY
--- NOTE | 2019-03-25 14:23 | NUR ---
I HAVE CALLED [facility] AND [facility] AND NO ANSWER AT PBX IN BOTH [facility]
--- NOTE | 2019-03-25 14:32 | NUR ---
ATTEMPTED TO CALL ) PT'S CONCERNING USE OF OUT OF NETWORK BENEFITS AND 50% CO PAY FOR YESTERDAY AND TODAY'S STAY, NO ONE PICKED UP.
[2019-03-25 16:00] VITALS: BP 95/60
[2019-03-25 17:17] VITALS: BP 105/64
--- NOTE | 2019-03-25 18:05 | NUR ---
Discharge instructions given as ordered. Encourage to follow up with PMD (Follow up with PCP in 1-2 weeks NORIS RANDHAWA. P# [phone]. [id number] [place] [address]. Follow up with GI Dr. [place] [address] [place] [address] #[phone] Ext : [phone] Follow up with OBGYN Dr. Garcia [address] [place] [address] #[phone] Ext : [phone]) as instructed. All questions and concerns addressed. Patient verbalized understanding. Medication reconciliation form completed and copy given to patient. IV removed with catheter intact, pressure dressing applied. Patient taken to vehicle via wheelchair with all personal belongings, accompanied by staff and family member. No distress noted at time of departure.
== END 2019-03-25 18:05 | disposition home or self-care (01) | DRG 804 ==
LOC: ER 09:33 → OVERFLOW 09:34 → WEST WING 15:37
PROVIDERS: ADMIT Nurse Practitioner Acute Care; ATTEND Internal Medicine Pulmonary Disease
PROC: 06H03DZ Insertion of Intraluminal Device into Inferior Vena Cava, Percutaneous Approach (ICD-10-PCS; principal; 2019-03-23)
PROC: 30233N1 Transfusion of Nonautologous Red Blood Cells into Peripheral Vein, Percutaneous Approach (ICD-10-PCS; 2019-03-23)
PROC: B5191ZA Fluoroscopy of Inferior Vena Cava using Low Osmolar Contrast, Guidance (ICD-10-PCS; 2019-03-25)
DX: D50.9 Iron deficiency anemia, unspecified (principal); F41.9 Anxiety disorder, unspecified; F32.9 Major depressive disorder, single episode, unspecified; D47.3 Essential (hemorrhagic) thrombocythemia; D72.819 Decreased white blood cell count, unspecified; E66.9 Obesity, unspecified; Z88.2 Allergy status to sulfonamides; Z88.6 Allergy status to analgesic agent; Z86.711 Personal history of pulmonary embolism; Z86.718 Personal history of other venous thrombosis and embolism; Z90.49 Acquired absence of other specified parts of digestive tract; Z82.49 Family history of ischemic heart disease and other diseases of the circulatory system; Z79.82 Long term (current) use of aspirin; Z79.01 Long term (current) use of anticoagulants; I69.320 Aphasia following cerebral infarction; Z68.23 Body mass index [BMI] 23.0-23.9, adult; Z79.899 Other long term (current) drug therapy
CPT/HCPCS: 36415; 36430; 80048; 80053; 82270; 82607; 82728; 82746; 83090; 83540; 83550; 84702; 85007; 85014; 85018; 85025; 85027; 85045; 85610; 85613; 85670; 85705; 85730; 85732; 86850; 86900; 86901; 86920; 93005; 93970; 94761; G0378; J2250

== ENCOUNTER 2019-10-05 17:13 | Emergency (ER) | payer OTHER ==
[~2019-10-05] VITALS: Ht 162.6 cm; Wt 61.2 kg
[~2019-10-05 17:13] MED LIST changes: -ASPI81TA27; -ATOR20TA50; -PAR20T
[2019-10-05 22:46] VITALS: BP 104/51
[2019-10-05] MEDS ORDERED: diphenhdrAMINE HCL 50 MG/1 ML VL IV ONE (23:00)
[2019-10-06] MEDS ORDERED: methylPREDNISolone SOD SUCC 125 MG/2 ML VL IM ONE (00:30)
[2019-10-06] MEDS ORDERED: ACETAMINOPHEN 500 MG TAB PO ONE (00:30)
== END 2019-10-06 02:18 | disposition home or self-care (01) ==
LOC: ER 17:19
DX: L25.9 Unspecified contact dermatitis, unspecified cause (principal); L29.9 Pruritus, unspecified; E78.5 Hyperlipidemia, unspecified; Z86.73 Personal history of transient ischemic attack (TIA), and cerebral infarction without residual deficits; Z90.89 Acquired absence of other organs; Z88.2 Allergy status to sulfonamides
CPT/HCPCS: 96372; 96374; 99283; J1200; J2930